=== PATIENT | male | born 1955 | race Caucasian/White ===

== ENCOUNTER 2024-02-24 09:33 | Emergency (ER) | payer MEDICARE, SELFPAY ==
[2024-02-24 09:32] VITALS: BP 153/80; PULSE 93; RESP 19; TEMP 37; O2SAT 95; BMI 26.6
--- NOTE | 2024-02-24 09:34 | PC.NURSE ---
SEIZURE PADS PLACED ON BED
--- NOTE | 2024-02-24 09:36 | CT_ITS ---
PROCEDURE INFORMATION: Exam: CT Head Without Contrast Exam date and time: 02/24/2024 10:01 AM Age: 68 years old Clinical indication: Injury or trauma; Alteration of consciousness; Additional info: AMS, seizure TECHNIQUE: Imaging protocol: Computed tomography of the head without contrast. Radiation optimization: All CT scans at this facility use at least one of these dose optimization techniques: automated exposure control; mA and/or kV adjustment per patient size (includes targeted exams where dose is matched to clinical indication); or iterative reconstruction. COMPARISON: CT HEAD/BRAIN WO CON 02/24/2024 10:01 AM FINDINGS: Brain: There is a focal hypodensity right frontal lobe white matter that appears to represent vasogenic edema from an underlying occult mass that would be better demonstrated on contrast-enhanced MRI exam. Small indistinct hypodensity also noted in right cerebral peduncle and right cerebellar hemisphere that may be artifactual and would be better assessed on MR exam. No evidence of intracranial hemorrhage. Cortical sulci are otherwise unremarkable. Cerebral ventricles: Unremarkable for age. Paranasal sinuses: Visualized sinuses are unremarkable. No fluid levels. Mastoid air cells: Visualized mastoid air cells are well aerated. Bones: Unremarkable. No acute fracture. Soft tissues: Unremarkable. IMPRESSION: 1. Focal vasogenic edema involving white matter right inferior frontal lobe believed secondary to underlying occult frontal lobe lesion for which follow-up contrast-enhanced CT or preferably MRI exam recommended for further evaluation. 2. Questionable small hypodensities right cerebral peduncle and right cerebellar hemisphere that could also be further assessed on follow-up MRI exam.
--- NOTE | 2024-02-24 09:36 | XR_ITS ---
PROCEDURE INFORMATION: Exam: XR Chest Exam date and time: 02/24/2024 10:01 AM Age: 68 years old Clinical indication: Injury or trauma; Other: Seizure, fall; Blunt trauma (contusions or hematomas); Additional info: AMS, seizure with syncope TECHNIQUE: Imaging protocol: Radiologic exam of the chest. Views: 1 view. COMPARISON: CR XR CHEST PORTABLE 02/24/2024 10:01 AM FINDINGS: Lungs: Unremarkable. No consolidation. Pleural spaces: Unremarkable. No pleural effusion. No pneumothorax. Heart/Mediastinum: Unremarkable. No cardiomegaly. Bones/joints: Unremarkable. IMPRESSION: No acute findings.
--- NOTE | 2024-02-24 09:36 | XR_ITS ---
PROCEDURE INFORMATION: Exam: XR Pelvis Exam date and time: 02/24/2024 10:01 AM Age: 68 years old Clinical indication: Injury or trauma; Fall; Blunt trauma (contusions or hematomas); Bilateral; Hip; Additional info: Fall, syncope TECHNIQUE: Imaging protocol: Radiologic exam of the pelvis. Views: 1 or 2 view. COMPARISON: No relevant prior studies available. FINDINGS: Bones/joints: There is no evidence of acute fracture.There is no evidence of malalignment or dislocation. Soft tissues: Unremarkable. IMPRESSION: There is no evidence of acute fracture.There is no evidence of malalignment or dislocation.
--- NOTE | 2024-02-24 09:36 | PC.NURSE ---
DR VENTURA AT BEDSIDE
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
--- NOTE | 2024-02-24 09:39 | ECG_ITS ---
APPROVED REPORT Exam: Resting ECG HR:80 bpm ECG Measurements Heart Rate 80 AXES ID 197 P 54 QRSd 104 QRS 4 QT 398 T 29 QTc 434 Conclusion Normal sinus rhythm, normal axis, no acute ST elevation, ST depression concerning for ischemia, T wave inversions in V1 Electronically signed by : Kathy Rodriguez, 02/24/2024 13:19:35
--- NOTE | 2024-02-24 09:42 | PC.NURSE ---
seizure pads placed this time
[2024-02-24 09:46] LABS: VBG HCO3 14.1 mmol/L (23-30); VBG PCO2 49.5 mmol/L (35-51); VBG Total CO2 15.6 mmol/L (23-27)
[2024-02-24 09:48] LABS: Albumin Level 4.9 g/dl (3.5-5.0); Chloride 109 mmol/L (98-107)
[2024-02-24 09:49] LABS: Potassium 3.4 mmoL/L (3.5-5.1); Sodium 143 mmol/L (136-145)
--- NOTE | 2024-02-24 09:50 | PC.NURSE ---
CRITICAL VBG RESULTS RECEIVED FROM RESPIRATORY. PT NAME AND R/V. GIVEN TO DR VENTURA. NO NEW ORDERS
[2024-02-24 09:51] LABS: VBG PH 7.07 mmol/L (7.31-7.41)
[2024-02-24 09:51] LABS: Alanine Aminotransferase 43 U/L (12-78); Albumin/Globulin Ratio 1.5 (1.1-1.8); Alkaline Phosphatase 123 U/L (38-126); Aspartate Amino Transferase 46 U/L (17-59); Basophils # 0.1 K/mm3 (0-0.2); Basophils % 1.3 % (0.1-2.0); Bilirubin,Total 0.8 mg/dl (0.2-1.3); Blood Urea Nitrogen 19 mg/dl (9-20); Carbon Dioxide 13 mmol/L (22.0-30.0); Eosinophils # 0.3 K/mm3 (0.0-0.4); Eosinophils % 3.1 % (0.1-12.0); Estimated Glomerular Filt Rate 84 ml/min (>60); GFR (African American) 102 ML/MIN (>60); Globulin 3.2 g/dL (1.3-3.2); Hematocrit 52.6 % (42.0-52.0); Hemoglobin 16.7 g/dL (14.1-18.0); Lymphocytes # 3.6 K/mm3 (0.7-4.5); Lymphocytes % 34.9 % (10-50); Mean Corpuscular HGB Conc 31.7 g/dL (31.8-35.4); Mean Corpuscular Hemoglobin 33.1 pg (27.0-31.2); Mean Corpuscular Volume 104.6 fl (80-94); Mean Platelet Volume 8.3 fl (7.4-10.4); Monocytes % 9.8 % (1.7-9.3); Neutrophils # 5.3 K/mm3 (1.8-7.8); Platelet Count 228 K/mm3 (142-424); Red Blood Count 5.03 M/mm3 (4.60-6.20); Red Cell Distribution Width 13.4 % (11.5-17.5); Total Protein,Serum 8.1 g/dl (6.3-8.2); White Blood Count 10.4 K/mm3 (4.8-10.8)
[2024-02-24 09:52] LABS: Anion Gap 24.4 mEq/L (5-15); Calcium 9.4 mg/dl (8.4-10.2); Creatine Kinase 121 U/L (55-170); Glucose 80 mg/dl (74-100); Magnesium 2.2 mg/dl (1.6-2.3)
[2024-02-24 09:52] LABS: Lactate Venous 14.3 mmol/L (0.4-2.0)
--- NOTE | 2024-02-24 09:52 | PC.NURSE ---
Pt to ct at this time
--- NOTE | 2024-02-24 09:54 | CT_ITS ---
PROCEDURE INFORMATION: Exam: CT Cervical Spine Without Contrast Exam date and time: 02/24/2024 10:03 AM Age: 68 years old Clinical indication: Injury or trauma; Additional info: Fall, neck injury TECHNIQUE: Imaging protocol: Computed tomography of the cervical spine without contrast. Radiation optimization: All CT scans at this facility use at least one of these dose optimization techniques: automated exposure control; mA and/or kV adjustment per patient size (includes targeted exams where dose is matched to clinical indication); or iterative reconstruction. COMPARISON: CT HEAD/BRAIN WO CON 02/24/2024 10:01 AM FINDINGS: Bones/joints: Cervical curvature is unremarkable very slight degenerative spondylolisthesis C2-C3 and C3-C4 otherwise alignment is maintained. Degenerative changes mid-lower cervical spine with disc space narrowing and endplate osteophytic lipping. No severe stenosis of the central canal or neural foramina evident. No fracture, dislocation or traumatic spondylolisthesis detected. Lungs: Lung apices are normal. Soft tissues: Unremarkable. IMPRESSION: No acute bony abnormalities.
[2024-02-24 10:09] LABS: Free T4 (Free Thyroxine) 1.14 ng/dl (0.78-2.19)
[2024-02-24 10:12] LABS: Troponin I < 0.01 ng/ml (0.00-0.034)
--- NOTE | 2024-02-24 10:12 | PC.NURSE ---
pt back from RAD at this time
[2024-02-24 10:23] LABS: Thyroid Stimulating Hormone 4.27 uIU/mL (0.465-4.68)
[2024-02-24 10:30] VITALS: BP 132/72; PULSE 60; RESP 14; O2SAT 96
--- NOTE | 2024-02-24 10:43 | MR_ITS ---
PROCEDURE INFORMATION: Exam: MR Head Without and With Contrast Exam date and time: 02/24/2024 11:20 AM Age: 68 years old Clinical indication: Other: Seizure; Additional info: Right frontal lobe mass, seizure TECHNIQUE: Imaging protocol: Magnetic resonance imaging of the head without and with contrast. Contrast material: ISOVUE; Contrast volume: 16 ml; Contrast route: IV; COMPARISON: CT HEAD/BRAIN WO CON 02/24/2024 10:01 AM FINDINGS: Brain: See Bones finding. Cerebral ventricles: Normal. No ventriculomegaly. Bones: Along the orbital surface of the right frontal lobe there is T2 signal abnormality without mass effect or abnormal enhancement, probably reflecting gliosis. There is otherwise no mass effect, midline shift, hemorrhage, extra-axial fluid collection or acute infarct. Periventricular white matter signal hyperintensities likely represent chronic microvascular ischemic change. Paranasal sinuses: Normal as visualized. No acute sinusitis. Mastoid air cells: Normal as visualized. No mastoid effusion. Orbital cavities: Unremarkable. Soft tissues: Unremarkable. IMPRESSION: Signal abnormality, configuration most compatible with gliosis along the orbital surface of the right frontal lobe corresponding to CT findings. No mass effect or abnormal enhancement to suggest an underlying mass.
--- NOTE | 2024-02-24 10:50 | PC.NURSE ---
Spoke w/Hailee from care management about pt needing MRI. She states it is ok to proceed.
--- NOTE | 2024-02-24 11:04 | PC.NURSE ---
pt to mri at this time urine sent
[2024-02-24 11:28] LABS: Barbiturates Screen,Urine Negative ng/ml (<200); Benzodiazepines Screen,Urine Negative ng/ml (<200)
[2024-02-24 11:29] LABS: Amphetamine/Metha Screen,Urine Negative ng/ml (<1000)
[2024-02-24 11:30] LABS: Cannabinoid Screen,Urine Negative ng/ml (<50); Cocaine Screen,Urine Negative ng/ml (<300)
[2024-02-24 11:31] LABS: Methadone Screen,Urine Negative ng/ml (<300)
[2024-02-24 11:32] LABS: Opiate Screen,Urine Negative ng/ml (<300); Phencyclidine Screen,Urine Negative ng/ml (<25)
--- NOTE | 2024-02-24 13:01 | PC.NURSE ---
called [facility] for Neurosurgery consult. will call back
[2024-02-24 13:18] VITALS: BP 131/72; PULSE 61; O2SAT 98
--- NOTE | 2024-02-24 13:19 | PC.NURSE ---
rounded on pt no needs at this time,hooked him up to data machine to obtain vitals and turned light off call light in reach
[2024-02-24 13:33] LABS: Lactate Venous 1.9 mmol/L (0.4-2.0); VBG Base Excess -0.5 mmol/L (-2.4-2.3); VBG HCO3 25.1 mmol/L (23-30); VBG PCO2 46.1 mmol/L (35-51); VBG PH 7.35 mmol/L (7.31-7.41); VBG PO2 43.6 mmol/L (28-40); VBG Total CO2 26.5 mmol/L (23-27)
[2024-02-24 13:49] LABS: Reflex Lactic Add Lactic Reflex
--- NOTE | 2024-02-24 13:54 | PC.NURSE ---
MDs called back talking to GILMER VANG at this time
[2024-02-24 14:09] VITALS: BP 145/76; PULSE 64; RESP 18; O2SAT 99
--- NOTE | 2024-02-24 14:11 | PC.NURSE ---
[facility] Rodriguez [facility]
[2024-02-24 14:25] VITALS: BP 145/76; PULSE 64; RESP 18; TEMP 36.6; O2SAT 99
== END 2024-02-24 14:36 | disposition home or self-care (01) ==
PROVIDERS: Emergency Provider Student in an Organized Health Care Education/Training Program
DX: R56.9 Unspecified convulsions (principal); R11.0 Nausea; G93.9 Disorder of brain, unspecified; S01.512A Laceration without foreign body of oral cavity, initial encounter; E87.20 Acidosis, unspecified; W26.8XXA Contact with other sharp object(s), not elsewhere classified, initial encounter; Y92.9 Unspecified place or not applicable
CPT/HCPCS: 70450; 70553; 71045; 72125; 72170; 80050; 80053; 80307; 82550; 82803; 83735; 84439; 84443; 84484; 85025; 93005; 96361; 96374; 96375; 99285; A9576; J1100; J1953; J2405; J7120